=== PATIENT | male | born 1980 | race Caucasian/White ===

== ENCOUNTER 2017-06-01 09:27 | Emergency (ER) | payer BC ==
[~2017-06-01] VITALS: Ht 175.3 cm; Wt 109.1 kg
[~2017-06-01 09:27] MED LIST: PHENERGAN W/CO120 M1 PO; PREDNISONE20 MG PO; VENTOLIN0.09 MG IH; ZITHROMAX Z PA250 MG PO
[2017-06-01 09:40] VITALS: BP 150/97; TEMP 98.6
[2017-06-01 11:42] LABS: INFLUENZA A POSITIVE; INFLUENZA B NEGATIVE
[2017-06-01 12:12] VITALS: PULSE 101
== END 2017-06-01 12:13 | disposition home or self-care (01) ==
LOC: COL.ER 09:27
PROVIDERS: Physician Assistant Medical
DX: J11.1 Influenza due to unidentified influenza virus with other respiratory manifestations (principal)

== ENCOUNTER 2019-10-01 16:04 | Emergency (ER) | payer BC ==
[~2019-10-01] VITALS: Ht 177.8 cm; Wt 113.6 kg
[2019-10-01 16:11] VITALS: TEMP 98.1
[2019-10-01 16:26] LABS: BASO # 0.1 (0.0-0.2); BASO % 0.5 % (0.0-2.0); EOS # 0.3 (0.0-0.7); EOS % 2.6 % (0-4.0); GRAN # 7.8 (1.4-6.5); GRAN % 71.2 % (42.2-75.2); HEMATOCRIT 43.1 % (42.0-52.0); HEMOGLOBIN 14.6 g/dl (13.5-18.0); LYMPH # 2.2 (1.2-3.4); LYMPH % 19.8 % (20.0-51.0); MEAN CELL VOLUME 84 fl (80.0-100.0); MEAN CORPUSCULAR HEMOGLOBIN 28 pg (27.0-31.0); MEAN CORPUSCULAR HGB CONC 34 g/dl (33.0-37.0); MEAN PLATELET VOLUME 10.7 fl (7.4-10.4); MONO # 0.6 (0.1-0.6); MONO % 5.5 % (1.7-9.3); PLATELET COUNT 173 K/mm3 (130-400); RED BLOOD COUNT 5.15 M/mm3 (4.20-5.60); REDCELL DISTRIBUTION WIDTH-CV 12.5 % (11.5-14.5)
[2019-10-01 16:30] LABS: PROTHROMBIN TIME 11.7 SECONDS (9.7-12.8)
[2019-10-01 16:33] LABS: PARTIAL THROMBOPLASTIN TIME 31.3 SECONDS (26.0-37.0)
[2019-10-01 16:34] LABS: ALANINE AMINOTRANSFERASE 23 U/L (4-49); ALBUMIN 4.4 gm/dL (3.5-5.0); ALKALINE PHOSPHATASE 69 U/L (50-136); ANION GAP 7 mmol/L (7-16); AST,SGOT 31 U/L (15-37); BILIRUBIN,TOTAL 0.9 mg/dL (0.0-1.0); BLOOD UREA NITROGEN 18 mg/dL (9-20); CALCIUM 9.3 mg/dL (8.4-10.2); CARBON DIOXIDE 29 mmol/L (22-30); CHLORIDE 104 mmol/L (98-107); CREATININE, serum 0.95 (0.66-1.25); GLUCOSE 97 mg/dL (74-106); POTASSIUM 3.9 mmol/L (3.4-5.0); SODIUM 139 mmol/L (137-145); TOTAL PROTEIN 7.5 gm/dL (6.4-8.2)
[2019-10-01 16:59] LABS: TROPONIN-I < 0.012 ng/mL (0.000-0.035)
[2019-10-01 18:08] VITALS: BP 130/87; PULSE 77
== END 2019-10-01 18:10 | disposition home or self-care (01) ==
LOC: COL.ER 16:04
PROVIDERS: Family Medicine
DX: R07.9 Chest pain, unspecified (principal)

== ENCOUNTER 2020-12-22 00:35 | Emergency (ER) | payer BC ==
[~2020-12-22] VITALS: Ht 175.3 cm; Wt 113.6 kg
[2020-12-22 00:39] VITALS: TEMP 98.1
[2020-12-22 01:00] LABS: BASO # 0.1 (0.0-0.2); BASO % 0.8 % (0.0-2.0); EOS # 0.5 (0.0-0.7); EOS % 4.3 % (0-4.0); GRAN # 6.3 (1.4-6.5); GRAN % 54.7 % (42.2-75.2); HEMATOCRIT 42.9 % (42.0-52.0); HEMOGLOBIN 14.5 g/dl (13.5-18.0); LYMPH # 3.9 (1.2-3.4); LYMPH % 33.9 % (20.0-51.0); MEAN CELL VOLUME 84 fl (80.0-100.0); MEAN CORPUSCULAR HEMOGLOBIN 29 pg (27.0-31.0); MEAN CORPUSCULAR HGB CONC 34 g/dl (33.0-37.0); MEAN PLATELET VOLUME 10.9 fl (7.4-10.4); MONO # 0.7 (0.1-0.6); MONO % 5.8 % (1.7-9.3); PLATELET COUNT 197 K/mm3 (130-400); RED BLOOD COUNT 5.08 M/mm3 (4.20-5.60); REDCELL DISTRIBUTION WIDTH-CV 12.6 % (11.5-14.5)
[2020-12-22 01:11] LABS: ALBUMIN 4.2 gm/dL (3.5-5.0); BILIRUBIN,TOTAL 0.4 mg/dL (0.0-1.0); CALCIUM 9.6 mg/dL (8.4-10.2); CREATININE, serum 1.14 (0.66-1.25); TOTAL PROTEIN 7.3 gm/dL (6.4-8.2)
[2020-12-22 02:00] LABS: COLLECTION METHOD CLEAN CATCH
[2020-12-22 02:07] LABS: MUCOUS Present /lpf; PH 5 (5-8); SQUAMOUS EPITHELIAL None Seen /hpf; URINE APPEARANCE Cloudy; URINE BACTERIA None Seen /hpf; URINE BILIRUBIN Negative (NEGATIVE); URINE BLOOD 3+ (NEGATIVE); URINE COLOR Yellow; URINE GLUCOSE Negative (NEGATIVE); URINE KETONE Negative (NEGATIVE); URINE LEUKOCYTE ESTERASE Negative (NEGATIVE); URINE NITRATE Negative (NEGATIVE); URINE PROTEIN(semi-quant) 1+ (NEGATIVE); URINE RBC >50 /hpf; URINE UROBILINOGEN Negative (NEGATIVE)
[2020-12-22] MEDS ORDERED: NORCO 325 MG-51 TAB PO (03:21)
[2020-12-22] MEDS ORDERED: ZOFRAN ODT4 MG PO (03:21)
[2020-12-22] MEDS ORDERED: FLOMAX 0.40.4 MG/CAP PO (03:21)
[2020-12-22 03:35] VITALS: BP 155/80; PULSE 78
== END 2020-12-22 03:35 | disposition home or self-care (01) ==
LOC: COL.ER 00:35
PROVIDERS: Emergency Medicine
DX: N13.2 Hydronephrosis with renal and ureteral calculous obstruction (principal); K80.20 Calculus of gallbladder without cholecystitis without obstruction
CPT/HCPCS: J1885; J2405; J2765; J3010; J7120